=== PATIENT | male | born 1990 | race Caucasian/White ===

== ENCOUNTER 2016-12-07 11:46 | Inpatient (IN) | payer OTHER ==
[~2016-12-07] VITALS: Ht 170.2 cm; Wt 83.7 kg
[~2016-12-07 11:46] MED LIST: FLUOXETINE HCL20 MG PO; LIBRIUM25 MG PO; NOHOMEMEDS; THERAGRAN1 TABLET PO; VITAMIN B-1100 MG PO; ZOLPIDEM TARTRAT5 MG PO
[2016-12-07] MEDS ORDERED: GABAPENTIN300 MG PO (12:12)
[2016-12-07] MEDS ORDERED: ZUBSOLV 8.6-2.1 EACH SL (12:12)
[2016-12-07] MEDS ORDERED: NEURONTIN300 MG PO (12:13)
[2016-12-07 12:53] LABS: EOSINOPHIL (%) 0.4 % (0-5); HEMATOCRIT 46.1 % (38.0-50.0); IMMATURE GRANULOCYTE (%) 0.5 % (0.0-0.7); IMMATURE GRANULOCYTE COUNT 0.1 K/uL; INSTRUMENT ABS NEUTROPHIL CT 8.5 K/uL; MCH 29.9 PG (29.0-34.0); MCHC 34.5 G/DL (30.0-36.0); MCV 86.7 FL (86-99); MEAN PLAT.VOLUME 9.3 uM^3 (9.0-12.4); MONOCYTE (%) 5.8 % (3-12); MONOCYTE COUNT 0.6 K/uL (0-0.8); NEUTROPHIL (%) 83.2 % (45-76); NEUTROPHIL COUNT 8.5 K/uL (1.8-6.4); PLATELET COUNT 142 K/uL (156-360); RBC DIS.WIDTH-CV 12.5 % (11.8-14.6); RBC DIS.WIDTH-SD 39.4 % (39-53); RED BLOOD COUNT 5.32 M/uL (4.00-5.50); WHITE BLOOD COUNT 10.2 K/uL (4.1-10.2)
[2016-12-07 12:55] LABS: CHLORIDE 99 mEq/L (99-109); POTASSIUM 3.6 mEq/L (3.7-5.4); SODIUM 143 mEq/L (136-147)
[2016-12-07 12:56] LABS: GLUCOSE 91 mg/dL (70-99)
[2016-12-07 12:58] LABS: ANION GAP 21 MEQ/L (2-14)
[2016-12-07 13:00] LABS: GFR ESTIMATE (CALCULATED) > 59 mL/min/; SERUM ETHYL ALCOHOL 449 mg/dL
[2016-12-07 13:01] LABS: UREA NITROGEN (BUN) 9 mg/dL (9-23)
[2016-12-07 15:13] LABS: ADD MIUA? YES; BILIRUBIN NEGATIVE; BLOOD MODERATE; COLOR YELLOW ((YELLOW)); GLUCOSE (STRIP) NEGATIVE; KETONES 20; LEUKOCYTES NEGATIVE; NITRITE NEGATIVE; PROTEIN (STRIP) 100; SPECIFIC GRAVITY 1.013 (1.000-1.030); UROBILINOGEN 0.2 MG/DL (0.2-1.0)
[2016-12-07 15:24] LABS: AMPHETAMINE NEGATIVE (500 ng/mL); BACTERIA RARE /HPF; BARBITURATES NEGATIVE (200 ng/mL); BENZODIAZEPINES NEGATIVE (150 ng/mL); COCAINE NEGATIVE (150 ng/mL); EPITHELIAL CELLS RARE /HPF; HYALINE CASTS 30-40 /LPF; INTERNAL CONTROLS VALID? YES; METHADONE NEGATIVE (200 ng/mL); METHAMPHETAMINE NEGATIVE (500 ng/mL); MUCUS 3+ /LPF; OPIATES (MORPHINE) NEGATIVE (100 ng/mL); OXYCODONE NEGATIVE (100 ng/mL); PHENCYCLIDINE NEGATIVE (25 ng/mL); PROPOXYPHENE NEGATIVE (300 ng/mL); THC CANNABINOIDS NEGATIVE (50 ng/mL); TRICYCLIC ANTIDEPRESSANTS NEGATIVE (300 ng/mL); WHITE BLOOD CELLS 15-20 /HPF (0-5)
[2016-12-08 09:59] LABS: POINT-OF-CARE METER ID UU13113702
[2016-12-09] VITALS (16 sets, daily range): BP systolic 94–176; BP diastolic 26–103
[2016-12-09 03:48] LABS: CHLORIDE 95 mEq/L (99-109)
[2016-12-09 03:50] LABS: GLUCOSE 103 mg/dL (70-99)
[2016-12-09 03:51] LABS: ANION GAP 10 MEQ/L (2-14)
[2016-12-09 03:52] LABS: HEMATOCRIT 37.9 % (38.0-50.0); MCH 30.2 PG (29.0-34.0); MCHC 34.3 G/DL (30.0-36.0); MCV 87.9 FL (86-99); RBC DIS.WIDTH-CV 11.9 % (11.8-14.6); RBC DIS.WIDTH-SD 38.6 % (39-53); RED BLOOD COUNT 4.31 M/uL (4.00-5.50); TOTAL BILIRUBIN 2.2 mg/dL (0.0-1.0); WHITE BLOOD COUNT 6.2 K/uL (4.1-10.2)
[2016-12-09 03:54] LABS: ALKALINE PHOSPHATASE 58 IU/L (3-129); GFR ESTIMATE (CALCULATED) > 59 mL/min/
[2016-12-09 03:55] LABS: UREA NITROGEN (BUN) 5 mg/dL (9-23)
[2016-12-09 04:00] LABS: SODIUM 135 mEq/L (136-147)
[2016-12-09 04:34] LABS: HEMATOLOGY COMMENT 1 SMEAR COMPATIBLE; MEAN PLAT.VOLUME 10.3 uM^3 (9.0-12.4); PLAT.SUFFICIENCY DECREASED; PLATELET COUNT 82 K/uL (156-360)
[2016-12-09 07:03] LABS: MAGNESIUM 1.1 mg/dL (1.3-2.7)
[2016-12-09 09:14] LABS: INTER. NORMALIZED RATIO 1.2; PROTHROMBIN TIME 11.9 (9.2-11.2); PTT 24.8 (25-32)
[2016-12-09 09:45] LABS: METH RESISTANT S AUREUS PCR NEGATIVE (NEGATIVE); PROBE CHECK PASS; SPECIMEN PROCESSING CONTROL PASS
[2016-12-09 12:21] LABS: POINT-OF-CARE METER ID UU13113748
[2016-12-09 12:43] LABS: CREATINE KINASE 137 IU/L (1-294); TOTAL CK 137 IU/L (1-294)
[2016-12-09 12:44] LABS: CK-MB 1.2 ng/mL (0.0-4.9)
[2016-12-09 17:57] LABS: POINT-OF-CARE METER ID UU14174217
[2016-12-09 18:37] LABS: CREATINE KINASE 141 IU/L (1-294); TOTAL CK 141 IU/L (1-294)
[2016-12-09 20:08] LABS: CK-MB 1.8 ng/mL (0.0-4.9)
[2016-12-09 21:28] LABS: ANION GAP 14 MEQ/L (2-14); CHLORIDE 104 MEQ/L (99-109); GFR ESTIMATE (CALCULATED) > 59 mL/min/; GLUCOSE 89 mg/dL (70-99); MAGNESIUM 2.7 mg/dl (1.3-2.7); POTASSIUM 3.7 MEQ/L (3.7-5.4); SODIUM 141 MEQ/L (136-147); UREA NITROGEN (BUN) 3 mg/dL (9-23)
[2016-12-10] VITALS (13 sets, daily range): BP systolic 111–143; BP diastolic 60–89
[2016-12-10 05:20] LABS: EOSINOPHIL (%) 4.3 % (0-5); EOSINOPHIL COUNT 0.2 K/uL (0-0.3); HEMATOCRIT 34.2 % (38.0-50.0); IMMATURE GRANULOCYTE (%) 0.5 % (0.0-0.7); INSTRUMENT ABS NEUTROPHIL CT 2.2 K/uL; MCHC 34.5 G/DL (30.0-36.0); MCV 89.8 FL (86-99); MEAN PLAT.VOLUME 10.5 uM^3 (9.0-12.4); MONOCYTE (%) 6.2 % (3-12); MONOCYTE COUNT 0.2 K/uL (0-0.8); NEUTROPHIL (%) 60.9 % (45-76); NEUTROPHIL COUNT 2.2 K/uL (1.8-6.4); PLATELET COUNT 66 K/uL (156-360); RBC DIS.WIDTH-CV 12.2 % (11.8-14.6); RBC DIS.WIDTH-SD 39.8 % (39-53); RED BLOOD COUNT 3.81 M/uL (4.00-5.50); WHITE BLOOD COUNT 3.7 K/uL (4.1-10.2)
[2016-12-10 06:02] LABS: ALKALINE PHOSPHATASE 53 IU/L (3-129); ANION GAP 9 MEQ/L (2-14); CHLORIDE 102 MEQ/L (99-109); DIRECT BILIRUBIN 0.3 mg/dL (0.0-0.3); GFR ESTIMATE (CALCULATED) > 59 mL/min/; GLUCOSE 107 mg/dL (70-99); MAGNESIUM 2.3 mg/dl (1.3-2.7); POTASSIUM 3.3 MEQ/L (3.7-5.4); SAMPLE HEMOLYSIS CHECK 0; SAMPLE ICTERIC CHECK 0; SAMPLE LIPEMIA CHECK 0; SODIUM 139 MEQ/L (136-147); TOTAL BILIRUBIN 1.1 MG/DL (0.0-1.0); UREA NITROGEN (BUN) 3 mg/dL (9-23)
[2016-12-10] MEDS ORDERED: GABAPENTIN400 MG PO (12:44)
[2016-12-10] MEDS ORDERED: ACAMPROSATE CA333 MG PO (12:46)
[2016-12-10] MEDS ORDERED: PAROXETINE HCL40 MG PO (12:46)
[2016-12-11 04:45] VITALS: BP 132/87
[2016-12-11 06:34] LABS: EOSINOPHIL (%) 3.6 % (0-5); EOSINOPHIL COUNT 0.2 K/uL (0-0.3); HEMATOCRIT 38.5 % (38.0-50.0); IMMATURE GRANULOCYTE (%) 0.8 % (0.0-0.7); INSTRUMENT ABS NEUTROPHIL CT 2.9 K/uL; LYMPHOCYTE COUNT 1.4 K/uL (1.0-2.8); MCH 30.8 PG (29.0-34.0); MCHC 34.3 G/DL (30.0-36.0); MCV 89.7 FL (86-99); MEAN PLAT.VOLUME 11.5 uM^3 (9.0-12.4); MONOCYTE (%) 9.8 % (3-12); MONOCYTE COUNT 0.5 K/uL (0-0.8); NEUTROPHIL (%) 57.3 % (45-76); NEUTROPHIL COUNT 2.9 K/uL (1.8-6.4); RBC DIS.WIDTH-CV 12.3 % (11.8-14.6); RBC DIS.WIDTH-SD 39.9 % (39-53); RED BLOOD COUNT 4.29 M/uL (4.00-5.50)
[2016-12-11 06:41] LABS: PLATELET COUNT 95 K/uL (156-360)
[2016-12-11 06:47] LABS: ANION GAP 7 MEQ/L (2-14); CHLORIDE 99 MEQ/L (99-109); GFR ESTIMATE (CALCULATED) > 59 mL/min/; GLUCOSE 93 mg/dL (70-99); MAGNESIUM 2.3 mg/dl (1.3-2.7); POTASSIUM 3.6 MEQ/L (3.7-5.4); SAMPLE HEMOLYSIS CHECK 0; SAMPLE ICTERIC CHECK 0; SAMPLE LIPEMIA CHECK 0; SODIUM 138 MEQ/L (136-147); UREA NITROGEN (BUN) 5 mg/dL (9-23)
[2016-12-11 08:14] VITALS: BP 127/80
[2016-12-11 12:10] VITALS: BP 140/87
[2016-12-11] MEDS ORDERED: FOLIC ACID1 MG PO (14:46)
[2016-12-11] MEDS ORDERED: THERAGRAN1 TABLET PO (14:47)
[2016-12-11] MEDS ORDERED: CHLORDIAZEPOXID25 MG PO (14:49)
[2016-12-11] MEDS ORDERED: Thiamine,Vitamin B1 PO (14:49)
[2016-12-11 16:56] VITALS: BP 131/84
== END 2016-12-11 16:54 | DRG 897 ==
LOC: EME 11:46 → 4WEST 12-09 06:47 → EDOF 12-09 06:47 → 4WEST 12-09 07:42 → 4EAST 12-10 19:54
PROVIDERS: Emergency Medicine; Internal Medicine Critical Care Medicine; Internal Medicine Nephrology
PROC: HZ2ZZZZ Detoxification Services for Substance Abuse Treatment (ICD-10-PCS; principal; 2016-12-09)
DX: F10.231 Alcohol dependence with withdrawal delirium (principal); F11.20 Opioid dependence, uncomplicated; R45.851 Suicidal ideations; F05 Delirium due to known physiological condition; F33.9 Major depressive disorder, recurrent, unspecified; F10.221 Alcohol dependence with intoxication delirium; Y90.8 Blood alcohol level of 240 mg/100 ml or more; F41.9 Anxiety disorder, unspecified; F17.210 Nicotine dependence, cigarettes, uncomplicated; E87.6 Hypokalemia; E83.42 Hypomagnesemia; F12.90 Cannabis use, unspecified, uncomplicated; Z59.0 Homelessness; Z56.0 Unemployment, unspecified; Z91.5 Personal history of self-harm; Z81.8 Family history of other mental and behavioral disorders; R45.1 Restlessness and agitation; R40.2422 Glasgow coma scale score 9-12, at arrival to emergency department; E87.8 Other disorders of electrolyte and fluid balance, not elsewhere classified; K70.10 Alcoholic hepatitis without ascites; K71.6 Toxic liver disease with hepatitis, not elsewhere classified; T51.0X2A Toxic effect of ethanol, intentional self-harm, initial encounter; Y92.9 Unspecified place or not applicable
CPT/HCPCS: 80048; 80048 91; 80053; 80076; 81003; 82550; 82550 91; 82553; 82948; 83735; 84100; 85025; 85027; 85610; 85730; 87641; 90837; 99281; 99284; G0480; J0574; J1815; J2060; J2405; J2560; J3360; J3411; J3475; J3480; J7030; J7040; J7050

== ENCOUNTER 2016-12-11 16:22 | Inpatient (IN) | payer OTHER ==
[~2016-12-11] VITALS: Ht 170.2 cm; Wt 85.3 kg
[~2016-12-11 16:22] MED LIST changes: +ACAMPROSATE CA333 MG PO; +CHLORDIAZEPOXID25 MG PO; +FOLIC ACID1 MG PO; +GABAPENTIN300 MG PO; +GABAPENTIN400 MG PO; +NEURONTIN300 MG PO; +PAROXETINE HCL40 MG PO; +Thiamine,Vitamin B1 PO; +ZUBSOLV 8.6-2.1 EACH SL
[2016-12-11 17:06] VITALS: BP 129/82
[2016-12-12 08:22] VITALS: BP 109/57
[2016-12-12 15:46] VITALS: BP 133/63
[2016-12-13 07:35] VITALS: BP 116/68
[2016-12-13 15:32] VITALS: BP 145/77
[2016-12-14 08:03] VITALS: BP 104/57
[2016-12-14 16:27] VITALS: BP 106/53
[2016-12-15 07:41] VITALS: BP 123/65
[2016-12-15 15:24] VITALS: BP 106/57
[2016-12-16 08:00] VITALS: BP 114/68
[2016-12-16 15:53] VITALS: BP 116/59
[2016-12-17 07:55] VITALS: BP 114/54
[2016-12-17 15:37] VITALS: BP 140/60
[2016-12-18 07:29] VITALS: BP 138/82
[2016-12-18] MEDS ORDERED: PAROXETINE HCL40 MG PO (08:37)
[2016-12-18] MEDS ORDERED: FOLIC ACID1 MG PO (09:20)
[2016-12-18] MEDS ORDERED: GABAPENTIN400 MG PO (09:20)
[2016-12-18] MEDS ORDERED: ACAMPROSATE CA333 MG PO (09:20)
[2016-12-18] MEDS ORDERED: THERAGRAN1 TABLET PO (09:20)
[2016-12-18] MEDS ORDERED: Thiamine,Vitamin B1 PO (09:20)
[2016-12-18] MEDS ORDERED: VITAMIN B12 100MCG PO (09:20)
== END 2016-12-18 12:39 | disposition other institution (70) | DRG 881 ==
LOC: 1WEST 16:22
DX: F32.9 Major depressive disorder, single episode, unspecified (principal); R45.851 Suicidal ideations; F10.239 Alcohol dependence with withdrawal, unspecified; F11.20 Opioid dependence, uncomplicated; F41.9 Anxiety disorder, unspecified; Z59.0 Homelessness
CPT/HCPCS: 83735; 97150 GO; 97166 GO; 97530 GO; J0574